=== PATIENT | male | born 1980 | race Caucasian/White ===

== ENCOUNTER 2021-11-26 10:24 | Emergency (ER) | payer BC, SELFPAY ==
[2021-11-26 10:26] VITALS: BP 161/139; PULSE 72; RESP 14; TEMP 36.6; O2SAT 100; BMI 27.8
--- NOTE | 2021-11-26 10:45 | ED.VIS.LOWEX ---
HPI History of Present Illness HPI Narrative: Patient presents with redness and swelling to his left lower leg that has been getting worse over the past 2 to 3 days. Patient is unsure if he was bitten by an insect in his left leg. Patient states he was working outside a lot recently and noted some itching while he was outside. Patient states his pain is getting progressively worse. Patient describes it as throbbing. Patient states it is worse with ambulation. Patient states it feels better with rest. Patient does admit to some numbness and tingling in the middle of the reddened area. Patient also admits to some drainage coming from the area. Patient denies any fevers or chills. Chief Complaint: Bite Informant: patient Onset/Context/Timing Onset: Days (3) Context: Gradual Onset Timing: Continuous Quality of Pain: Throbbing Location: Left lower leg Worsened by: Ambulation Relieved by: Rest Associated Symptoms Associated Symptoms: Positive for Parasthesia; Negative for Weakness or Loss of Funtion Narrative Tetanus Immunization: Unknown PFSH PFSH Medical History no medical history no medical history Home Medications clindamycin HCl 300 mg capsule (Cleocin HCl) 300 mg PO Q6H ##40 10/19/13 [Rx Last Taken Unknown] sulfamethoxazole 800 mg-trimethoprim 160 mg tablet 1 tab PO BID ##20 10/19/13 [Rx Last Taken Unknown] cephalexin 500 mg capsule 500 mg PO Q6 ##40 10/16/14 [Rx Last Taken Unknown] doxycycline hyclate 100 mg capsule 100 mg PO BID #20 caps 11/26/21 [Rx Last Taken Unknown] Allergy/AdvReac Type Severity Reaction Status Date / Time No Known Allergies Allergy Verified 11/26/21 10:26 Surgical History no surgical history no surgical history Social History Smoking Status: Current every day smoker ROS ROS ED Constitutional Constitutional ED: Denies chills or fever(s) Eyes Eyes: Denies blurry vision or change in vision ENT ENT ED: Denies rhinorrhea or sore throat Cardiovascular Cardiovascular: Denies chest pain or palpitations Respiratory/Chest Respiratory/Chest: Denies cough or dyspnea Gastrointestinal Gastrointestinal: Denies nausea or vomiting Genitourinary Genitourinary ED: Denies dysuria or hematuria Musculoskeletal Musculoskeletal: Denies back pain or neck pain Integumentary Reports rash; Denies abscess Neurologic Neurologic: Denies headache(s) or weakness Allergic/Immunologic Allergic/Immunologic ED: Denies mouth swelling or urticaria EXAM Physical Exam Const Vital Signs: 11/26/21 10:26 Temperature 97.9 F Temperature Source Temporal Pulse Rate 72 Respiratory Rate 14 Blood Pressure 161/139 H Blood Pressure Mean 146 Pulse Ox 100 Oxygen Delivery Method Room Air Positive well nourished and well developed General Appearance ED: well developed HEENT Reports moist mucous membranes Extremity Extremity Narrative: There is erythema, mild edema, and warmth over the lateral aspect of the left lower leg. There is a darkened area in the center of it. There is no discharge or drainage. There is no fluctuance. There is no evidence of any abscess. There is no calf tenderness. Sensation was intact to light touch bilaterally in the lower extremities. There is good range of motion. Strength is 5/5 bilaterally in the lower extremities. Neuro oriented x3, CN's II-XII intact bilaterally, moves all extremities and no sensory deficits noted Sensorium / Orientation: alert Psych mental status grossly normal MDM MDM MDM Narrative Medical decision making narrative: Patient was given a dose of doxycycline here. Patient was given a prescription for doxycycline. Patient was given a tetanus booster. Patient was instructed to keep the area clean and dry. Patient was instructed to follow-up with his primary care physician in 5 to 7 days. Patient understood and was agreeable with the plan. All questions were answered. Discharge Plan Triage Chief Complaint: Bite ED Provider: Kodi Curtis Dx/Rx/DC Orders Clinical Impression: Cellulitis of left lower leg Instructions: ED Cellulitis Prescriptions: Continued doxycycline hyclate 100 MG capsule 100 mg PO BID Qty: 20 0RF No Action clindamycin HCl [Cleocin HCl] 300 MG capsule 300 mg PO Q6H Qty: 40 0RF sulfamethoxazole-trimethoprim 1 TABLET tablet 1 tab PO BID Qty: 20 0RF cephalexin 500 MG capsule 500 mg PO Q6 Qty: 40 0RF Primary Care Provider: Care Physician,No Primary Referrals: Care Physician,No Primary [Primary Care Provider] - Gee Hastings MD [STAFF PHYSICIAN] - 5-7 Days Disposition Disposition: Home, Self Care
[2021-11-26] MEDS: Doxycycline 100 MG CAPSULE PO (11:01)
[2021-11-26 11:17] VITALS: BP 108/69
== END 2021-11-26 11:17 | disposition home or self-care (01) ==
PROVIDERS: Emergency Provider Emergency Medicine; PCP Nurse Practitioner Family; Visit Provider Emergency Medicine
DX: L03.116 Cellulitis of left lower limb (principal); F17.200 Nicotine dependence, unspecified, uncomplicated
CPT/HCPCS: 99283

== ENCOUNTER 2024-01-09 20:35 | Emergency (ER) | payer BC, SELFPAY ==
[2024-01-09 20:37] VITALS: BP 102/78; PULSE 76; RESP 18; TEMP 36.3; O2SAT 100; BMI 25.5
--- NOTE | 2024-01-09 21:19 | EDS_ITS ---
HPI History of Present Illness Chief Complaint: Wound Detail of Chief Complaint: Bit right wrist and hand this past Informant: patient Occured/Mechanism Comment: Dog bite Onset/Context/Timing Onset: Days Context: Sudden Onset Location: Patient has puncture wound near the proximal dorsal right hand and forearm Current Severity: 0/10 Maximum Severity: Moderate Worsened by: Initial injury Relieved by: Not applicable Associated Symptoms Associated Symptoms: Negative for Parasthesia, Weakness or Loss of Funtion Narrative Narrative: Patient was seen and prescribed Augmentin. First dose of Augmentin was 10 AM Tuesday morning. He is taking a total of 3 doses. He denies fever, chills night sweats. He denies history of rheumatic fever, heart murmur, SBE or being immune suppressed. His only medication is the Augmentin. He denies paresthesia, anesthesia or motor weakness. Prior similar symptoms: No Recent Illness/Hospitalization: Yes [facility] Medical History Osteoarthritis Home Medications ?Medication ?Instructions ?Recorded ?Last Taken ?Type amoxicillin 875 mg-potassium 1 tab PO BID 7 days #14 tabs 01/08/24 Unknown Rx clavulanate 125 mg tablet Allergy/AdvReac Type Severity Reaction Status Date / Time No Known Allergies Allergy Verified 01/09/24 20:37 Family History Other Diabetes Surgical History No significant past surgical history Social History Smoking Status: Current every day smoker tobacco type: cigarettes alcohol intake: current substance use type: does not use ROS ROS ED Constitutional Constitutional ED: Denies chills, fever(s), subjective or sweats Musculoskeletal Musculoskeletal: Reports other Details: Dog bite right hand and right forearm ; Denies myalgias or neck pain Integumentary Reports other Details: Cellulitis dorsum of right hand Neurologic Neurologic: Denies paresthesias or weakness Hematologic/Lymphatic Hematologic/Lymphatic: Denies easy bleeding or easy bruising EXAM Physical Exam Const Vital Signs: 01/09/24 20:37 Temperature 97.3 F L Temperature Source Temporal Pulse Rate 76 Respiratory Rate 18 Blood Pressure 102/78 Blood Pressure Mean 86 Pulse Ox 100 Positive well nourished and well developed General Appearance ED: well developed and NAD HEENT normocephalic and atraumatic Eyes PERRL and EOMs intact bilaterally Resp normal respiratory effort Cardio regular rate and regular rhythm Extremity full ROM; Negative for normal to inspection Extremity Narrative: Median, radial and ulnar function intact. There is a puncture wound dorsal proximal right hand. There is also a puncture wound from dog bite distal dorsal right forearm. There is slight erythema. There is no soft tissue swelling. T here is no lymphangitis. There is no epitrochlear or axillary lymphadenopathy. Patient took pictures of the wound. There is marked improvement. The erythema is not as intense. The swelling has essentially dissipated. The wound over the dorsum of the hand was palpated. There was scant amount of purulent material. Culture was obtained. There was no material expressed from the puncture wound dorso distal right forearm. Neuro oriented x3 and CN's II-XII intact bilaterally Sensorium / Orientation: alert Psych mental status grossly normal Skin Skin Narrative: Cellulitis as described under the extremity portion of the EMR MDM MDM MDM Narrative Medical decision making narrative: Since patient took pictures and there is significant improvement patient was informed at this point there is no need to do any laboratory testing especially since his vitals are normal he is afebrile and the fact that he is improved significantly. Will obtain culture in the event that his symptoms worsen. He was instructed to take the Augmentin until gone. He was instructed to return if he develops a red streak that goes towards his elbow or has significant swelling. Discharge Plan Triage Chief Complaint: Wound ED Provider: Charlie Fang Dx/Rx/DC Orders Clinical Impression: Dog bite of right hand with infection, Cellulitis of right upper extremity Instructions: ED Cellulitis, ED Dog Bite Prescriptions: No Action amoxicillin-pot clavulanate 875-125 mg tablet 1 tab PO BID 7 Days Qty: 14 0RF Primary Care Provider: Candi Aldridge NP Referrals: Candi Aldridge NP, [facility] [Primary Care Provider] - 2 Days for wound check Activity Restrictions/Additional Instructions: 1. If you develop a temperature greater than 100, shaking chills, increased redness or swelling or red streak towards her elbow return to the emergency department. 2. Take Augmentin until gone Print Language: German Disposition Disposition: Home, Self Care
[2024-01-09 21:34] VITALS: RESP 16
== END 2024-01-09 21:35 | disposition home or self-care (01) ==
LOC: ED 21:33
PROVIDERS: Emergency Provider Emergency Medicine; PCP Nurse Practitioner Family; Visit Provider Emergency Medicine
DX: S61.451A Open bite of right hand, initial encounter (principal); L03.113 Cellulitis of right upper limb; F17.210 Nicotine dependence, cigarettes, uncomplicated; W54.0XXA Bitten by dog, initial encounter
CPT/HCPCS: 87070; 87205; 99282